=== PATIENT | male | born 1975 | race Caucasian/White ===

== ENCOUNTER 2020-03-22 10:57 | Emergency (ER) | payer MEDICARE ==
[~2020-03-22] VITALS: Ht 177.8 cm; Wt 131.5 kg
[2020-03-22 12:29] LABS: HEMOGLOBIN 12.4 gm/dl (14.0-17.5); WHITE BLOOD COUNT 3.5 K/UL (4.5-11.0)
[2020-03-22 12:56] LABS: BUN/CREATININE RATIO 15 (0-10)
== END 2020-03-22 17:30 | disposition home or self-care (01) ==
LOC: ER1 10:57
PROVIDERS: Emergency Medicine
DX: U07.1 COVID-19 (principal); E87.6 Hypokalemia; I10 Essential (primary) hypertension; Z87.820 Personal history of traumatic brain injury
CPT/HCPCS: 0241U; 71045; 80053; 82550; 82553; 83874; 84484; 85025; 85379; 86140; 99283; M0239

== ENCOUNTER 2021-09-21 23:36 | Emergency (ER) | payer MEDICARE ==
[2021-09-22 00:44] LABS: HEMOGLOBIN 14.5 gm/dl (14.0-17.5); RED BLOOD COUNT 4.93 M/UL (4.20-5.50); WHITE BLOOD COUNT 5.2 K/UL (4.5-11.0)
[2021-09-22 01:09] LABS: BUN/CREATININE RATIO 15 (0-10)
[2021-09-22] MEDS ORDERED: BENZONATATE200 MG PO (05:32)
== END 2021-09-22 05:40 | disposition home or self-care (01) ==
LOC: ER1 23:36
PROVIDERS: Physician Assistant
DX: U07.1 COVID-19 (principal); E87.6 Hypokalemia; E78.5 Hyperlipidemia, unspecified; I10 Essential (primary) hypertension
CPT/HCPCS: 0240U; 71045; 80053; 82550; 82553; 83605; 84484; 85025; 87040; 93005; 96374; 99284; J1885